=== PATIENT | female | born 1980 | race Caucasian/White ===

== ENCOUNTER → 2019-04-18 16:38 | Outpatient (CLI) | payer BC, SELFPAY ==
[2019-03-14 16:43] VITALS: BMI 27.1
[2019-04-24 14:07] LABS: Age Gdln ACOG Testing 30-65 (.)
[2019-04-24 14:51] LABS: HPV APTIMA, High Risk Negative (Negative); HPV Reflexed? YES, CHARGE PATIENT
== END ==
PROVIDERS: Visit Provider Obstetrics & Gynecology
DX: Z12.4 Encounter for screening for malignant neoplasm of cervix (principal)
CPT/HCPCS: 87624; 88175; G0145

== ENCOUNTER → 2020-05-14 07:04 | Outpatient (CLI) | payer OTHER, SELFPAY ==
[2020-01-31 17:34] VITALS: BMI 27.1
--- NOTE | 2020-05-14 07:07 | BI_ITS ---
MAMMOGRAPHY - BILATERAL SCREENING REASON FOR EXAM: Female, 40 years old. Routine annual screening examination. PERTINENT HISTORY: Grandmother with breast cancer. TECHNIQUE: Digital bilateral breast derrick (3D mammographic acquisition) in the CC and MLO projections. 2-D mediolateral oblique (MLO) and craniocaudad (CC) views of both breasts were obtained. CAD: Full Field Digital Mammography with Computer Added Detection was performed. COMPARISON: None. Baseline examination. FINDINGS: Breast Composition: The breasts are extremely dense, which lowers the sensitivity of mammography. There are no dominant masses or suspicious calcifications. No other significant abnormalities are identified. There has been no significant change since the prior study. BI/SCREEN MAMM (CAD) W/DERRICK BILAT IMPRESSION: Stable bilateral screening mammogram. Yearly follow-up mammogram recommended. (A) ASSESSMENT CATEGORY: BIRADS Category 1: Negative. A letter regarding these results will be sent to the patient by the facility within 30 days. Approximately 10% of breast cancers are not detected by mammography. A normal mammogram should not delay biopsy of a clinically suspicious abnormality. [id number] Electronically Signed: Chip Aranda, at 9:09 EST , Service support ,
== END ==
PROVIDERS: PCP Internal Medicine; Referring Provider Student in an Organized Health Care Education/Training Program; Visit Provider Student in an Organized Health Care Education/Training Program
DX: Z12.31 Encounter for screening mammogram for malignant neoplasm of breast (principal)
CPT/HCPCS: 77063; 77067

== ENCOUNTER 2021-05-19 07:09 | Outpatient (CLI) | payer BC, SELFPAY ==
--- NOTE | 2021-05-19 07:16 | BI_ITS ---
MAMMOGRAPHY - BILATERAL SCREENING REASON FOR EXAM: Female, 41 years old. Routine annual screening examination. PERTINENT HISTORY: Grandmother with breast cancer. TECHNIQUE: Digital bilateral breast derrick (3D mammographic acquisition) in the CC and MLO projections. 2-D mediolateral oblique (MLO) and craniocaudad (CC) views of both breasts were obtained. CAD: Full Field Digital Mammography with Computer Added Detection was performed. COMPARISON: Comparison is made with prior examination dated 05/14/2020. FINDINGS: Breast Composition: The breasts are extremely dense, which lowers the sensitivity of mammography. There are no dominant masses or suspicious calcifications. No other significant abnormalities are identified. There has been no significant change since the prior study. BI/SCRN MAMM (CAD)W/DERRICK BILAT IMPRESSION: Stable bilateral screening mammogram. Yearly follow-up mammogram recommended. (A) ASSESSMENT CATEGORY: BIRADS Category 1: Negative. A letter regarding these results will be sent to the patient by the facility within 30 days. Approximately 10% of breast cancers are not detected by mammography. A normal mammogram should not delay biopsy of a clinically suspicious abnormality. [id number] Electronically Signed: Chip Aranda MD at 8:15 EST , Service support ,
== END 2021-05-19 23:59 | disposition short-term general hospital (02) ==
PROVIDERS: PCP Internal Medicine; Referring Provider Obstetrics & Gynecology Gynecology; Visit Provider Obstetrics & Gynecology Gynecology
DX: Z12.31 Encounter for screening mammogram for malignant neoplasm of breast (principal)
CPT/HCPCS: 77063; 77067

== ENCOUNTER 2021-08-10 07:21 | Emergency (ER) | payer BC, SELFPAY ==
[2021-08-10 07:25] VITALS: BP 163/100; PULSE 87; RESP 17; TEMP 37; O2SAT 98; BMI 24.6
--- NOTE | 2021-08-10 07:54 | EDS_ITS ---
HPI HPI - Psych History of Present Illness Chief Complaint: Anxiety Narrative Narrative: 41-year-old female with history of anxiety which she is usually able to manage presenting with increased anxiety over the last several days. She states that she recently was put on a prednisone taper which started at 60 mg and ended at 10 mg from Wednesday to Wednesday of last week. She states she is not been able to sleep at night. She states that when she tries to go to sleep when she starts to fall off she ends up drinking herself out of sleep with what she calls brain shocks. She denies headache or visual complaints. He is not had any hallucinations or feelings of paranoia. She states that her ear pain has improved. Patient has not taking anything [id number] because she likes to avoid medications if needed. She was considering taking Tylenol PM at night. [facility] Medical History Encounter for screening for COVID-19 Otitis media, right URI (upper respiratory infection) Home Medications hydrochlorothiazide 25 mg tablet 12.5 mg PO DAILY tab 08/05/21 [History Last Taken Unknown] hydroxyzine pamoate [Vistaril] 25 mg PO TID PRN #20 cap 08/10/21 [Rx Last Taken Unknown] trazodone 100 mg PO QHS PRN #10 tab 08/10/21 [Rx Last Taken Unknown] Allergy/AdvReac Type Severity Reaction Status Date / Time No Known Allergies Allergy Verified 08/10/21 07:22 Social History Smoking Status: Never smoker [facility] ED Constitutional Constitutional ED: Denies chills or fever(s) Eyes Eyes: Denies blurry vision or diplopia ENT ENT ED: Denies rhinorrhea or sore throat Cardiovascular Cardiovascular: Denies chest pain or palpitations Respiratory/Chest Respiratory/Chest: Denies cough or dyspnea Gastrointestinal Gastrointestinal: Denies abdominal pain or nausea Genitourinary Genitourinary ED: Denies dysuria or hematuria Musculoskeletal Musculoskeletal: Denies arthralgias or myalgias Integumentary Denies abscess or rash Neurologic Neurologic: Denies headache(s) or paresthesias Psychiatric Psychiatric: Reports anxiety; Denies suicidal ideation or suicidal thoughts EXAM Physical Exam Const Vital Signs: 08/10/21 07:25 Temperature 98.6 F Temperature Source Temporal Pulse Rate 87 Respiratory Rate 17 Blood Pressure 163/100 H Blood Pressure Mean 121 Pulse Ox 98 Oxygen Delivery Method Room Air Positive well nourished General Appearance ED: NAD; Negative for pallor HEENT normocephalic and atraumatic Eyes PERRL and EOMs intact bilaterally Resp normal respiratory effort Cardio Rate: regular rate Rhythm: regular rhythm Neuro oriented x3 and CN's II-XII intact bilaterally Sensorium / Orientation: alert Psych mental status grossly normal, thought process normal and affect normal Appearance: grossly normal Attitude: calm and engaged Activity / Motor Behavior: appropriate eye contact Speech: normal speech Thought Process: normal thought process Attention / Concentration: attention grossly intact Memory / Cognition: memory grossly intact Insight: insight good Judgement: judgement good Skin General Skin Exam: Negative for jaundice or pallor MDM MDM MDM Narrative Medical decision making narrative: Patient presenting with increased anxiety and difficulty sleeping at night. She is not been able to sleep for several days. Has not tried anything [id number]. After a long discussion with her I do not believe she is manic. She has no evidence of psychosis. Her thought processes are clear. I think that she would benefit from a sleep aid. We discussed several alternatives and through shared decision making we determined that Vistaril would be a good choice for her during the day as needed for anxiety and that we would start her on trazodone at night to help her sleep. She will follow up with her primary care physician to ensure resolution of the symptoms as these may be related to her recent steroid use and it may dissipate on her own versus needing something for anxiety long-term. She is amenable to this plan. Patient stable for discharge. Impression: 1. Anxiety 2. Insomnia Lab Data Attestation: I reviewed the patient's lab results. Discharge Plan Triage Chief Complaint: Anxiety ED Provider: Alpesh Demarco Dx/Rx/DC Orders Instructions: ED Anxiety Reaction, ED Insomnia Prescriptions: New hydroxyzine pamoate [Vistaril] 25 mg capsule 25 mg PO TID PRN (Reason: anxiety) Qty: 20 RF: 0 trazodone 100 mg tablet 100 mg PO QHS PRN (Reason: insomnia) Qty: 10 RF: 0 No Action hydrochlorothiazide 25 mg tablet 12.5 mg PO DAILY RF: 0 Primary Care Provider: Juliette Sequeira Referrals: Juliette Sequeira MD [Primary Care Provider] - Disposition Disposition: Home, Self Care
[2021-08-10 08:16] VITALS: BP 138/88; PULSE 76; RESP 15; O2SAT 97
== END 2021-08-10 08:18 | disposition home or self-care (01) ==
LOC: ED 07:56
PROVIDERS: Emergency Provider Student in an Organized Health Care Education/Training Program; PCP Internal Medicine; Visit Provider Student in an Organized Health Care Education/Training Program
DX: F41.9 Anxiety disorder, unspecified (principal); G47.00 Insomnia, unspecified; Z79.899 Other long term (current) drug therapy
CPT/HCPCS: 99282